=== PATIENT | male | born 1960 ===

== ENCOUNTER 2024-12-03 09:24 | Outpatient (REF) | payer MEDICARE, SELFPAY | END 2024-12-03 09:25 | disposition home or self-care (01) | LOC: HO.SH 09:24 | PROVIDERS: Visit Provider Internal Medicine | DX: Z01.118 Encounter for examination of ears and hearing with other abnormal findings (principal); H91.93 Unspecified hearing loss, bilateral | CPT/HCPCS: 92552; 92556 ==